=== PATIENT | male | born 1950 | race Caucasian/White ===

== ENCOUNTER → 2017-07-07 | Outpatient (CLI) | payer OTHER ==
[~2017-07-07] MED LIST: ASPI-1471 PO; ATOR40TA69 PO; GLIM1TAB25 PO; INDO75CA PO; LISI2.5T60 PO; METF10002 PO; METF500T4 PO; METO25TA93 PO; NIT4 SL; PNEU0.5D3 IM; POTA-35 PO; SULF-198 PO; TAMS0.4C70 PO
[2017-07-07 09:32] LABS: PLATELET COUNT, AUTOMATED 186 K/uL (150-450)
[2017-07-07 10:32] LABS: LDL CHOLESTEROL 40 mg/dl
== END ==
LOC: LAB 08:57
PROVIDERS: ATTEND Internal Medicine
DX: I25.10 Atherosclerotic heart disease of native coronary artery without angina pectoris (principal); E11.9 Type 2 diabetes mellitus without complications; I10 Essential (primary) hypertension; E78.5 Hyperlipidemia, unspecified; M10.9 Gout, unspecified
CPT/HCPCS: 36415; 82040; 82043; 82247; 82310; 82374; 82435; 82465; 82565; 82947; 83036; 83718; 84075; 84132; 84155; 84295; 84443; 84450; 84460; 84478; 84520; 84550; 85025

== ENCOUNTER → 2018-07-25 | Outpatient (CLI) | payer OTHER ==
[~2018-07-25] MED LIST changes: +PRED-420 PO
[2018-07-25 08:19] LABS: PLATELET COUNT, AUTOMATED 218 K/uL (150-450)
[2018-07-25 08:31] LABS: LDL CHOLESTEROL 43 mg/dl
== END ==
LOC: LAB 07:54
PROVIDERS: ATTEND Internal Medicine
DX: E11.9 Type 2 diabetes mellitus without complications (principal); E78.5 Hyperlipidemia, unspecified; I10 Essential (primary) hypertension; M10.9 Gout, unspecified
CPT/HCPCS: 36415; 81001; 82040; 82043; 82247; 82310; 82374; 82435; 82465; 82565; 82947; 83036; 83718; 84075; 84132; 84153; 84155; 84295; 84443; 84450; 84460; 84478; 84520; 85025

== ENCOUNTER → 2019-01-04 | Outpatient (CLI) | payer OTHER ==
[~2019-01-04] MED LIST changes: +PNEI IJ
--- NOTE | 2019-01-04 15:46 | RADIOLOGY IMAGING REPORT ---
FACILITY: [facility] - [place] PATIENT NAME: Carlitos Andrew : 1950 MR: [id number] V: [id number] EXAM DATE: ORDERING PHYSICIAN: OTTONIEL CHURCHILL TECHNOLOGIST: Location: [facility] Patient: Carlitos Andrew : 1950 Visit/Account:[id number] Date of Sevice: 01/04/2019 CT ABDOMEN PELVIS W/O CON HISTORY: kidney stones, left flank pain TECHNIQUE: Axial images acquired through the abdomen/pelvis. Coronal and sagittal reformatting also performed. No IV contrast administered.Dose Lowering Technique One of the following dose optimization techniques was utilized in the performance of this exam: Autom ated exposure control; adjustment of the mA and/or kV according to the patient's size; or use of an i terative reconstruction technique. Specific details can be referenced in the facility's radiology C T exam operational policy. COMPARISON: None. FINDINGS: Visualized lung bases: Negative. Hepatobiliary: Negative. Spleen: Mildly enlarged at 14 cm Adrenals: Negative. Pancreas: Negative Kidneys ureters and bladder: There is moderate perinephric stranding bilaterally. No evidence of hyd ronephrosis or hydroureter. There is a 1.4 cm hypodensity in the interpolar region of the left kidne y. The CT Hounsfield units suggest this is a simple cyst. There is no demonstration of urolithiasis . Genitalia: Prostate gland is moderately enlarged impinging upon the floor the bladder GI: The appendix is visualized and does not appear inflamed. There is no evidence of bowel obstruct ion. There is a small hiatal hernia Vessels/spaces/nodes: There mild atherosclerotic calcifications in the abdominal aorta and branch ve ssels Bones/soft tissues: There spondylotic changes of the thoracolumbar spine. Additional findings: None pertinent. IMPRESSION: No demonstration of urolithiasis, hydronephrosis or hydroureter Moderate perinephric stranding bilaterally 1.4 cm hypodensity in the interpolar region of the left kidney likely represents a cyst by Hounsfield units Prostate gland is moderately enlarged impinging upon the floor the bladder Mild splenomegaly Report Dictated By: Jenny Dawson MD at 01/04/2019 3:14 PM Report E-Signed By: Jenny Dawson MD at 01/04/2019 3:38 PM WSN:[email or web address]
== END ==
LOC: CT 13:40
PROVIDERS: ATTEND Urology
DX: N40.0 Benign prostatic hyperplasia without lower urinary tract symptoms (principal); R16.1 Splenomegaly, not elsewhere classified
CPT/HCPCS: 74176

== ENCOUNTER → 2019-01-13 | Outpatient (CLI) | payer OTHER ==
[2019-01-13 12:30] LABS: PLATELET COUNT, AUTOMATED 198 K/uL (150-450)
--- NOTE | 2019-01-13 15:45 | RADIOLOGY IMAGING REPORT ---
FACILITY: [facility] - [place] PATIENT NAME: Carlitos Andrew : 1950 MR: [id number] V: [id number] EXAM DATE: ORDERING PHYSICIAN: DENY CABRERA TECHNOLOGIST: Location: [facility] Patient: Carlitos Andrew : 1950 Visit/Account:[id number] Date of Sevice: 01/13/2019 Exam type: L-SPINE 2 OR 3 VIEW History: low back pain, no known injury Comparison: None. Findings: There are five nonrib-bearing lumbar-type vertebral bodies present. There is no evidence of acute fr actures or subluxations. There is moderate disc space narrowing at L5-S1. There are flowing anterio r osteophytes at T12-L1, L1-L2 and L2-L3. IMPRESSION: 1. Multilevel spondylotic changes as described above. The bridging anterior osteophytes from T12 to L3 with very little disc space narrowing could be due to expression of diffuse idiopathic skeletal h yperostosis. Report Dictated By: Jenny Dawson MD at 01/13/2019 3:35 PM Report E-Signed By: Jenny Dawson MD at 01/13/2019 3:37 PM WSN:[email or web address]
== END ==
LOC: LAB 12:17
PROVIDERS: ATTEND Internal Medicine
DX: M54.5 Low back pain (principal); E78.5 Hyperlipidemia, unspecified; I10 Essential (primary) hypertension; E11.9 Type 2 diabetes mellitus without complications; I25.10 Atherosclerotic heart disease of native coronary artery without angina pectoris; M47.817 Spondylosis without myelopathy or radiculopathy, lumbosacral region
CPT/HCPCS: 36415; 72100; 81001; 82040; 82247; 82310; 82374; 82435; 82465; 82565; 82947; 83036; 83718; 84075; 84132; 84155; 84295; 84443; 84450; 84460; 84478; 84520; 85025